=== PATIENT | male | born 1970 | race Caucasian/White ===

== ENCOUNTER → 2020-07-22 | Day surgery (SDC) | payer BC, OTHER ==
--- NOTE | 2020-07-19 16:19 | Diagnostic Imaging Report ---
Exam: CHEST 2 VIEWS Date: 07/19/2020 4:13 PM INDICATION: ^PRE-OP Comparison: None FINDINGS: Lines/Tubes:None Lungs:The lungs are well inflated. No focal consolidation or pulmonary edema. Pleura:No pleural effusion. No pneumothorax. Heart/Mediastinum:The cardiomediastinal silhouette is normal in size and contour. Bones/Soft Tissues: No acute osseous abnormality. Mild to moderate multilevel degenerative changes of the spine are noted. Upper abdomen: Unremarkable. IMPRESSION: Negative for focal consolidation. Signed by: Canelo Serrano MD on 07/19/2020 4:16 PM
[2020-07-19 16:20] LABS: BASOPHILS # (AUTO) 0.1 (0.0-0.1); BASOPHILS % 1.2 % (0.0-1.0); EOSINOPHILS # (AUTO) 0.1 (0.0-0.4); HEMATOCRIT 37.7 % (38.2-49.6); HEMOGLOBIN 12.9 g/dL (14.0-18.0); LYMPHOCYTES # (AUTO) 3.2 (1.0-3.2); MEAN CORPUSCULAR HEMOGLOBIN 29.2 pg (28-32); MEAN CORPUSCULAR HGB CONC 34.2 g/dL (31-35); MEAN CORPUSCULAR VOLUME 85.3 fL (81-99); MONOCYTES # (AUTO) 0.9 (0.2-0.8); MONOCYTES % 8.4 % (4.4-11.3); NEUTROPHILS # (AUTO) 5.7 (2.1-6.9); NEUTROPHILS % 56.7 % (38.7-80.0); PLATELET COUNT 325 x10e3/uL (140-360); RED BLOOD COUNT 4.42 x10e6/uL (4.3-5.7); RED CELL DISTRIBUTION WIDTH 13.1 % (11.7-14.4)
[2020-07-19 16:29] LABS: INR 0.96; PARTIAL THROMBOPLASTIN TIME 25.7 seconds (23.8-35.5); PROTHROMBIN TIME 13.3 seconds (11.9-14.5)
[2020-07-19 16:34] LABS: ANION GAP 14.8 mmol/L (8-16); BLOOD UREA NITROGEN 11 mg/dL (7-26); BUN/CREATININE RATIO 12 (6-25); CALCIUM 9.2 mg/dL (8.4-10.2); CARBON DIOXIDE 25 mmol/L (22-29); CHLORIDE 104 mmol/L (98-107); CREATININE, SERUM 0.89 mg/dL (0.72-1.25); EST GLOMERULAR FILTRATION RATE > 60 ML/MIN (60-); GLUCOSE 78 mg/dL (74-118); POTASSIUM 3.8 mmol/L (3.5-5.1); SODIUM 140 mmol/L (136-145)
[~2020-07-22] MED LIST: ACETAMINOPHEN 1000 MG/100 ML 100 ML IV ONE; ACETAMINOPHEN 325 MG TAB PO PRN; ACETAMINOPHEN325 M1 PO; AMLODIPINE BESYL5 MG PO; AMLODIPINE BESYLATE 5 MG TAB PO SCH; CARISOPRODOL 350 MG TAB PO PRN; CEFAZOLIN SOD 1 GM/NS 50ML 100 ML IV ONE; CEFAZOLIN SOD 1 GM/NS 50ML 50 ML IV SCH; CEPACOL SORE THROAT LOZENGES PO PRN; DEXAMETHASONE SOD PHOS INJ 4 MG/ML VIAL ONE; EPHEDRINE SULFATE INJ 50 MG/ML VIAL ONE; FENTANYL CITRATE/PF 100MCG/2 ML INJ ONE; GLYCOPYRROLATE INJ 0.2 MG/ML VIAL ONE; HYDROMORPHONE 2MG/ML 2 MG/ML ML IV PRN; IBUPROFEN 800MG/ 200ML 200 ML IV ONE; IRBESARTAN 150 MG TAB PO SCH; IRBESARTAN-HCT1 EAC1 PO; LACTATED RINGER'S 1,000 ML IV SCH; LIDOCAINE 1% W/EPINEPHRINE 20 ML VIAL ONE; LIDOCAINE HCL (LTA) 4 ML SOLN ONE; LIDOCAINE HCL 2% JELLY 5 ML TUBE ONE; LIDOCAINE HCL 2% LOCAL INJ 5 ML SDV VIAL INJ ONE; MAGNESIUM/ALUMINUM/SIMETHICONE 30 ML UDC PO PRN; MIDAZOLAM HCL 2 MG/2 ML VIAL ONE; MORPHINE SULFATE 5 MG/ML VIAL IM PRN; MORPHINE SULFATE INJ 4 MG/ML INJ 1ML IM PRN; NEOSTIGMINE 1 MG/ML 10ML VIAL ONE; ONDANSETRON HCL INJ 2MG/ML 2ML 2 MG/ML VIAL IV PRN; ONDANSETRON HCL INJ 2MG/ML 2ML 2 MG/ML VIAL ONE; OXYCODONE/ACETAMINOPHEN 5-325 1 EACH TABLET PO PRN; PROMETHAZINE HCL (IM) 25 MG/ML VIAL IM PRN; PROPOFOL IV EMULSION 10 MG/ML 20 ML VIAL ONE; ROCURONIUM BROMIDE 10 MG/ML 5ML VIAL IV ONE; SEVOFLURANE INHAL SOLN 250 ML PEN BTL ONE; THROMBIN FOR SOLN 5,000 UNIT VIAL ONE; VANCOMYCIN HCL 1 GM VIAL ONE; VIT D3 PO; ZOLPIDEM TARTRATE 5 MG TAB PO PRN
--- NOTE | 2020-07-22 11:39 | Operative Report ---
DATE OF PROCEDURE: 07/22/2020 SURGEON: Harinder More MD PREOPERATIVE DIAGNOSIS: Severe L2-3 spinal stenosis with neurogenic claudication, M48.062. POSTOPERATIVE DIAGNOSIS: Severe L2-3 spinal stenosis with neurogenic claudication, M48.062. PROCEDURES: 1. L2 bilateral decompressive laminectomy and L2-3 bilateral medial facetectomies, 38875. 2. L3 bilateral partial decompressive laminectomy, 30295. ANESTHESIA: General. INDICATIONS: The patient is a 50-year-old man who presents with severe L2-3 spinal stenosis with neurogenic claudication who was taken to surgery for bilateral decompressive laminectomy. PROCEDURE IN DETAIL: After induction of general anesthesia, the patient was placed on the operating table in prone position over Rosalio frame. Lumbar region was prepped and draped in sterile fashion. A preoperative x-ray was obtained. A small midline incision was created. Lumbar fascia was opened along the midline and subperiosteal dissection was carried out to expose the underlying lamina. A probe was placed under the lamina of L3 and an x-ray was obtained revealing correct localization below L3. One segment was counted above this level to locate the L2-3 interspace. The operating microscope was brought in and retraction was maintained with an expandable Aesculap speculum retractor. A high-speed drill equipped with a 5 mm alexey bur was used to drill the inferior half of the lamina of L2 and the superior half lamina of L3 and the medial rim of the markedly hypertrophic L2-3 facet joints bilaterally. Markedly hypertrophic ligamentum flavum was then carefully resected to fully expose and decompress the dura. The ligamentum flavum in the lateral recesses was then resected to expose and decompress the traversing L3 nerve roots. The underlying disk was examined on each side and consisted of a chronic osteophyte, which was not significantly compressing the nerve roots and was not resected. The wound was thoroughly irrigated with bacitracin solution. Meticulous hemostasis was secured. Retraction was removed. The lumbar fascia was closed with 0 Vicryl sutures. The subcutaneous layer was closed with 2-0 Vicryl sutures. The skin was closed with 3-0 Monocryl sutures in subcuticular fashion. Steri-Strips and dressing were applied. The patient was awakened, extubated, and taken to postanesthesia care unit in stable condition. No intraoperative complications were encountered. Estimated blood loss was 10 mL. Harinder More MD PP/LESLEE /[id number]
[2020-07-22 12:00] VITALS: BP 137/68
--- NOTE | 2020-07-22 16:52 | Diagnostic Imaging Report ---
EXAMINATION: Lumbar spine radiographs - 1 views CLINICAL HISTORY: L2-L3 spinal stenosis COMPARISON: None. DISCUSSION: Limited intraoperative single cross table radiograph of the lumbar spine. Linear radiopaque surgical markers overlie the lumbar spine at the level of the L3 vertebra and L3-L4 intervertebral disc space. Questionable height loss of L1 vertebral body however may be accentuated by radiographic technique. Advanced multilevel degenerative disc changes and facet arthropathy. IMPRESSION: 1. Limited intraoperative cross table radiograph with linear radiopaque surgical markers overlying the L3 vertebra and L3-L4 intervertebral disc space. 2. Questionable height loss of L1 vertebral body, however may be accentuated by radiographic technique. 3. Advanced multilevel degenerative changes. Signed by: Dr. Buck Alba M.D. on 07/22/2020 4:48 PM
--- NOTE | 2020-07-22 16:53 | Diagnostic Imaging Report ---
EXAMINATION: Lumbar spine radiographs - 1 views CLINICAL HISTORY: L2-L3 spinal stenosis COMPARISON: None. DISCUSSION: Limited intraoperative single cross table radiograph of the lumbar spine. Linear metallic surgical marker overlies the posterior spinal elements at L3-L4. Questionable height loss of L1 vertebral body however may be accentuated by radiographic technique. Advanced multilevel degenerative disc changes and facet arthropathy. IMPRESSION: 1. Limited intraoperative cross table radiograph with linear metallic surgical marker overlying the posterior spinal elements at L3-L4. 2. Questionable height loss of L1 vertebral body, however may be accentuated by radiographic technique. 3. Advanced multilevel degenerative changes. Signed by: Dr. Buck Alba M.D. on 07/22/2020 4:50 PM
== END | disposition home or self-care (01) ==
LOC: OR 05:26
PROVIDERS: ATTEND Neurological Surgery
DX: M48.062 Spinal stenosis, lumbar region with neurogenic claudication (principal); I10 Essential (primary) hypertension; Z01.810 Encounter for preprocedural cardiovascular examination; Z01.812 Encounter for preprocedural laboratory examination; Z01.818 Encounter for other preprocedural examination; Z11.59 Encounter for screening for other viral diseases; Z68.32 Body mass index [BMI] 32.0-32.9, adult; Z87.891 Personal history of nicotine dependence
CPT/HCPCS: 36415; 63047; 63048; 71046; 72020; 80048; 85025; 85610; 85730; 86850; 86900; 88304; 93005; J0131; J0690; J2250; J3010; J3370; U0002; J1100; J2001; J2405; J2710

== ENCOUNTER 2021-05-18 07:29 | Emergency (ER) | payer BC ==
[~2021-05-18] VITALS: Ht 177.8 cm; Wt 102.1 kg
[~2021-05-18 07:29] MED LIST changes: -ACETAMINOPHEN 1000 MG/100 ML 100 ML IV ONE; -ACETAMINOPHEN 325 MG TAB PO PRN; -AMLODIPINE BESYLATE 5 MG TAB PO SCH; -CARISOPRODOL 350 MG TAB PO PRN; -CEFAZOLIN SOD 1 GM/NS 50ML 100 ML IV ONE; -CEFAZOLIN SOD 1 GM/NS 50ML 50 ML IV SCH; -CEPACOL SORE THROAT LOZENGES PO PRN; -DEXAMETHASONE SOD PHOS INJ 4 MG/ML VIAL ONE; -EPHEDRINE SULFATE INJ 50 MG/ML VIAL ONE; -FENTANYL CITRATE/PF 100MCG/2 ML INJ ONE; -GLYCOPYRROLATE INJ 0.2 MG/ML VIAL ONE; -HYDROMORPHONE 2MG/ML 2 MG/ML ML IV PRN; -IBUPROFEN 800MG/ 200ML 200 ML IV ONE; -IRBESARTAN 150 MG TAB PO SCH; -LACTATED RINGER'S 1,000 ML IV SCH; -LIDOCAINE 1% W/EPINEPHRINE 20 ML VIAL ONE; -LIDOCAINE HCL (LTA) 4 ML SOLN ONE; -LIDOCAINE HCL 2% JELLY 5 ML TUBE ONE; -LIDOCAINE HCL 2% LOCAL INJ 5 ML SDV VIAL INJ ONE; -MAGNESIUM/ALUMINUM/SIMETHICONE 30 ML UDC PO PRN; -MIDAZOLAM HCL 2 MG/2 ML VIAL ONE; -MORPHINE SULFATE 5 MG/ML VIAL IM PRN; -MORPHINE SULFATE INJ 4 MG/ML INJ 1ML IM PRN; -NEOSTIGMINE 1 MG/ML 10ML VIAL ONE; -ONDANSETRON HCL INJ 2MG/ML 2ML 2 MG/ML VIAL IV PRN; -ONDANSETRON HCL INJ 2MG/ML 2ML 2 MG/ML VIAL ONE; -OXYCODONE/ACETAMINOPHEN 5-325 1 EACH TABLET PO PRN; -PROMETHAZINE HCL (IM) 25 MG/ML VIAL IM PRN; -PROPOFOL IV EMULSION 10 MG/ML 20 ML VIAL ONE; -ROCURONIUM BROMIDE 10 MG/ML 5ML VIAL IV ONE; -SEVOFLURANE INHAL SOLN 250 ML PEN BTL ONE; -THROMBIN FOR SOLN 5,000 UNIT VIAL ONE; -VANCOMYCIN HCL 1 GM VIAL ONE; -ZOLPIDEM TARTRATE 5 MG TAB PO PRN
[2021-05-18] MEDS ORDERED: DEXAMETHASONE SOD PHOS 10 MG/1 ML VIAL IM ONE (08:15)
[2021-05-18] MEDS ORDERED: HYDROCODONE/APAP 7.5MG-325MG 1 EA TAB PO ONE (08:15)
[2021-05-18] MEDS ORDERED: KETOROLAC TROMETHAMINE 60 MG/2 ML VIAL IM ONE (08:15)
== END 2021-05-18 09:45 | disposition home or self-care (01) ==
LOC: ER 08:12
DX: M54.41 Lumbago with sciatica, right side (principal); I10 Essential (primary) hypertension
CPT/HCPCS: 99283; J1100; J1885